=== PATIENT | female | born 1985 | race African-American/Black ===

== ENCOUNTER 2016-05-08 22:51 | Inpatient (IN) | payer OTHER ==
--- NOTE | ~2016-05-08 | HP ---
Unit #: [id number] #: [id number] Patient: ANA JOLLY [id number] [place] [address] [id number] MR#: [id number] NAME: ANA JOLLY ROOM: P211 Age: 31 Sex: F Admission Date: 05/08/2016 : 1985 Attending Physician: Manohar Avalos M.D. Admitting Physician: Manohar Avalos M.D. Primary Care Physician: Primary Care Physician No HISTORY AND PHYSICAL HISTORY OF PRESENT ILLNESS The patient is a 31 year old female who states that she is here due to alcohol abuse. Drinks approximately one fifth of bourbon or vodka per day. PAST MEDICAL HISTORY None. PAST SURGICAL HISTORY Significant for left ankle surgery. ALLERGIES None. SOCIAL HISTORY Positive for alcohol. FAMILY HISTORY Noncontributory. REVIEW OF SYSTEMS CONSTITUTIONAL: No fever or chills. HEENT: Denies any sore throat, ear pain or runny nose. CARDIOVASCULAR: Denies chest pain, irregular heart rhythm or palpitations. CHEST: Denies shortness of breath or cough. No hemoptysis. GASTROINTESTINAL: Denies nausea, vomiting, diarrhea or chronic constipation. ENDOCRINE: Denies history of increased thirst or urination. No recent significant weight loss or gain. GENITOURINARY: Denies dysuria, frequency, or hematuria. SKIN: Denies any rashes. HEMATOLOGIC: Denies history of increased bleeding or bruising. MUSCULOSKELETAL: Denies any hot, swollen joints. No generalized muscle pain. NEUROLOGIC: Denies problems with vision or speech. No frequent, severe headaches. No numbness, tingling or weakness in any extremities. Denies loss of bladder or bowel control. CURRENT MEDICATIONS 1. Paxil 20 mg daily. 2. Klonopin 1 mg p.o. t.i.d. PHYSICAL EXAMINATION GENERAL: Alert, oriented, in no acute distress. Unit #: [id number] #: [id number] Patient: ANA JOLLY VITAL SIGNS: Temperature 98, blood pressure 138/85, heart rate 118, respirations 20. HEIGHT: 5 feet 6 inches. WEIGHT: 250 pounds. SKIN: Warm and dry without rash or lesion. Scar to the left ankle and a scar to the bilateral thoracic area. HEENT: Normocephalic. TMs not viewed. Oral and nasal passages clear. Conjunctivae clear. PERRLA. EOMs intact. NECK: Supple without lymphadenopathy or thyromegaly. HEART: Regular rate and rhythm without murmur. LUNGS: Clear. ABDOMEN: Soft, nontender, without masses or hepatosplenomegaly. : Not done. EXTREMITIES: No evidence of cyanosis, clubbing or edema. Moves all without focal deficit. NEUROLOGICAL: Grossly within normal limits. Cranial Nerves: II: Visual putnam are intact. III, IV AND : Extraocular movements are intact. Pupils are equal, round and reactive to light. V: Facial sensation is grossly normal. VII: Facial movements and expression are normal. VIII: Auditory acuity grossly intact. IX, X: Uvula is midline. Phonation is normal. XI: Patient shrugs shoulders and turns head normally. XII: Tongue protrudes in the midline. Sensory and Motor Function: Sensory and motor sensation is grossly normal. Motor: moves all extremities well. Coordination: Gait is normal. Deep Tendon Reflexes: Intact. IMPRESSION Psychiatric admission. RECOMMENDATIONS PSYCHIATRIC: Per psychiatrist. MEDICAL: No contraindications to participate in facility's activities. MEDICAL PROGNOSIS Good. Dictated by... Susan Martinez/bahman TD: 05/09/2016 18:48 JOB #: [id number] Unit #: [id number] #: [id number] Patient: [facility] HISTORY AND PHYSICAL Page 1 of 1 X Mehnaz Joshi APR X HISTORY AND PHYSICAL
--- NOTE | ~2016-05-08 | PN ---
Unit #: [id number] #: [id number] Patient: ANA CORRALES [id number] [facility] [address] [place] [address] [id number] MR#: [id number] NAME: ANA CORRALES ROOM: P211 Age: 31 Sex: F Admission Date: 05/08/2016 : 1985 Attending Physician: Manohar Avalos M.D. Admitting Physician: Bora Chery PROGRESS NOTES DATE OF SERVICE: 05/10/2016 SUBJECTIVE Ms. Corrales is a 31-year-old female who was seen today and chart was reviewed, and case was discussed with the staff. She has been anxious, withdrawn, and rather seclusive to herself. Meanwhile, she has been cooperative with treatment recommendations and has been taking the medications and tolerating them fairly well with no reported side effects. MENTAL STATUS EXAMINATION Young female who was casually dressed with fair personal hygiene, appears to be in no acute distress or discomfort. She was awake and alert with intact orientation. Her mood was anxious with a congruent affect. She denies any suicidal or homicidal ideations. Her insight and judgment remain slightly impaired. TREATMENT PLAN 1. We will continue on her current treatment protocol. We will monitor her response to the medications and make further adjustments as needed. 2. We will continue to follow up. Dictated by... Bora Chery/argelia TD: 05/10/2016 13:47 JOB #: [id number] [facility] NOTES Page 1 of 1 X Manohar Avalos MD PROGRESS NOTE
--- NOTE | ~2016-05-08 | DS ---
Unit #: [id number] #: [id number] [facility] [id number] [facility] [address] [place] [address] [id number] I MR#: [id number] NAME: ANA JOLLY ROOM: P211 Age: 31 Sex: F Admission Date: 05/08/2016 : 1985 Discharge Date: Attending Physician: Manohar Avalos M.D. DISCHARGE SUMMARY IDENTIFYING DATA Ms. Jolly is a 31-year-old single female, who is a resident of [place], [place], and was self-referred to the hospital. DISCHARGE DIAGNOSES Psychiatric: Alcohol dependence, moderate and acute withdrawals; alcohol-induced mood disorder; cannabis abuse, moderate; cocaine abuse, moderate. Medical: None. Stressors: Moderate psychosocial stressors. HISTORY OF PRESENT ILLNESS Please see initial psychiatric evaluation for details. PAST PSYCHIATRIC HISTORY Please see initial psychiatric evaluation for details. PAST MEDICAL HISTORY Please see initial psychiatric evaluation for details. HOSPITAL COURSE The patient was admitted to the adult chemical dependency and psychiatric unit at [facility] and was oriented to the hospital environment. Routine p.r.n. medications were initiated, and she was started back on her home medications and was closely monitored. She was taking the medications regularly and was tolerating them fairly well and was able to show a decent and therapeutic response and was willing to continue treatment on an outpatient basis and as such, it was decided that she will be discharged home and will continue treatment on an outpatient basis. DISCHARGE MEDICATIONS Paxil 20 mg a day for depression, Seroquel 100 mg at bedtime for mood disorder, Vistaril 50 mg t.i.d. for anxiety. DISCHARGE CONDITION Stable. PROGNOSIS Fair. Dictated by... Manohar Avalos M.D. IAA/modl Unit #: [id number] #: [id number] Patient: ANA JOLLY TD: 05/12/2016 06:48 JOB #: [id number] DISCHARGE SUMMARY Page 1 of 1 X Manohar Avalos MD DISCHARGE SUMMARY
--- NOTE | ~2016-05-08 | PN ---
Unit #: [id number] #: [id number] Patient: ANA CORRALES [id number] [facility] [address] [place] [address] [id number] I MR#: [id number] NAME: ANA CORRALES ROOM: P211 Age: 31 Sex: F Admission Date: 05/08/2016 : 1985 Attending Physician: Manohar Avalos M.D. Admitting Physician: Manohar Avalos M.D. Primary Care Physician: Primary Care Physician Yris GRAMAJO PROGRESS NOTES DATE 05/11/2016 DISCUSSION Ms. Corrales is a 31-year-old female who was seen today and chart was reviewed and case was discussed with the staff. She has been anxious, withdrawn though appears to be doing better and reports doing good on her detox symptoms. She has been taking medications and tolerating them fairly well with no reported side effects. MENTAL STATUS EXAMINATION Young female who was casually dressed with fair personal hygiene, appears to be in no acute distress or discomfort. She was awake and alert on interaction with intact orientation. Her mood was anxious and depressed with congruent affect. She denies any suicidal or homicidal ideations. Her insight and judgement remains slightly impaired. TREATMENT PLAN 1. We will continue her on her current medications and treatment protocol. We will monitor her response to the medication and make further adjustments as needed. 2. We will continue to follow up. Dictated by... Bora Chery/jyoti TD: 05/13/2016 04:29 JOB #: [id number] Unit #: [id number] #: [id number] Patient: ANA CORRALES PROGRESS NOTES Page 1 of 1 X Manohar Avalos MD PROGRESS NOTE
--- NOTE | ~2016-05-08 | PA ---
Unit #: [id number] #: [id number] Patient: ANA CORRALES [id number] [facility] [address] [place] [address] [id number] I MR#: [id number] NAME: ANA CORRALES ROOM: P211 Age: 31 Sex: F Admission Date: 05/08/2016 : 1985 Date of Assessment: Attending Physician: Manohar Avalos M.D. Admitting Physician: Manohar Avalos M.D. Primary Care Physician: Primary Care Physician No PSYCHIATRIC ASSESSMENT DATE OF SERVICE 05/09/2016. IDENTIFYING DATA Ms. Corrales is a 31-year-old single female with a history of alcohol dependence, who is a resident of [place], [place] and was just recently discharged from my care after she was detoxed from alcohol; however, she ended up relapsing and now brought herself back to the hospital as a self-referral. CHIEF COMPLAINT "I was drinking and driving and I had a panic attack." HISTORY OF PRESENT ILLNESS Ms. Corrales is a 31-year-old female, who was brought to the hospital, accompanied by her uncle, Enrico Corrales, and upon presentation, had a blood alcohol level of 0.280 and a blood pressure of 143/93 and a heart rate of 133 and was in acute detox while intoxicated at the same time and reports that she is not suicidal, but that she had a lot of anxiety and has trouble sleeping and that she takes Paxil and Klonopin, but at the same time has been mixing the Klonopin with alcohol and has been having some accentuated response and has a history of addiction with alcohol being the primary drug of choice and has refused to follow up with outpatient treatment program after each hospitalization and has decompensated pretty soon after being discharged from the hospital and on this presentation, it has been noted that she was pushing to leave the last time she was under my care and was giving me different excuses and reasons stating that she feels that she is all better and cured and was ready to move on and soon afterwards, she ended up relapsing and now reports increasing depression, anxiety, irritability, restlessness, and inability to function on a daily basis. She denied any suicidal ideations, intent, or plan. SUBSTANCE ABUSE HISTORY The patient has had a history of alcohol, cannabis, cocaine, and amphetamine abuse, and currently, alcohol appears to be her drug of choice as she has been drinking a fifth on a daily basis and has an infrequent use of cannabis and cocaine. PAST PSYCHIATRIC HISTORY The patient has had a history of inpatient psychiatric hospitalizations at [facility]. She has done outpatient treatment program and has been to [facility] in the past as well, but has struggled to achieve any Unit #: [id number] #: [id number] Patient: ANA CORRALES JUDITH long-term sobriety, and review of the medical records indicate that currently she has been a patient of Dr. Bermudez, who has been her psychiatrist and has been giving her Klonopin on a t.i.d. basis despite the fact that the patient is an alcoholic and has been drinking regularly and heavily and has not been able to stay sober and I feel that she did not even had a chance to stay sober as even though she was clean from alcohol, she was getting Klonopin, was given the false perception that she has anxiety and therefore she has to be on Klonopin and yet she has never had a clean brain to see the underlying issues be properly addressed and not to mention that she has been mixing Paxil with alcohol and therefore has not been able to get any therapeutic response out of that particular medication as well. PAST MEDICAL HISTORY No acute or chronic medical illnesses. ALLERGIES No known medication allergies. PERSONAL AND SOCIAL HISTORY A 31-year-old female, who reports that she is single, unemployed, homeless, and has poor social support system. MENTAL STATUS EXAMINATION Young female, who was casually dressed with fair personal hygiene, appears to be in no acute distress or discomfort. She was awake and alert on interaction with intact orientation. Her mood was anxious and depressed with a congruent affect. Her speech was slow and restricted in content. Her thought processes were disorganized with some looseness of associations and paranoid ideations. Her insight and judgment remain significantly impaired. DIAGNOSTIC IMPRESSION Psychiatric: Alcohol dependence, moderate, in acute withdrawals; alcohol-induced mood disorder; cannabis abuse, moderate; and cocaine abuse, moderate. Medical: None. Stressors: Moderate psychosocial stressors. TREATMENT PLAN 1. The patient has presented with a history of substance abuse and mood disorder and has been decompensating and will need inpatient hospitalization for safety and stabilization. We will start her back on her home medications and detox protocol though will discontinue Klonopin. I will start her on the alcohol detox protocol. 2. Supportive therapy was provided to the patient. ESTIMATED LENGTH OF STAY 4 to 5 days. ABILITY TO HELP SELF Limited. WILLINGNESS TO HELP SELF The patient appears to be willing to help self. STRENGTHS 1. Communicative. 2. Cooperative. Unit #: [id number] #: [id number] Patient: ANA CORRALES JUDITH PROBLEMS 1. Chronic dysphoric symptoms. 2. Poor social support system. DISCHARGE CRITERIA This will be contingent upon the patient's ability to go through detox without having any significant withdrawal symptoms as well as her ability to stay safe to herself, particularly after discharge from the hospital. Dictated by... Bora Chery/argelia TD: 05/09/2016 13:42 JOB #: [id number] PSYCHIATRIC ASSESSMENT Page 1 of 1 X Manohar Avalos MD X PSYCHIATRIC ASSESSMENT
[2016-05-09 12:53] LABS: BASOPHIL% 0.5 % (0-2.5); EOSINOPHIL# 0.5 X10e3 (0-0.7); EOSINOPHIL% 8.4 % (0.0-7.0); HEMATOCRIT 41.4 % (35.0-45.0); HEMOGLOBIN 13.6 gm/dL (12.0-16.0); LYMPHOCYTE# 1.4 X10e3 (1.0-3.5); LYMPHOCYTE% 24.4 % (17.0-45.0); MEAN CORPUSCULAR HEMOGLOBIN 28.3 PG (28-34); MEAN CORPUSCULAR HGB CONC 32.9 g/dL (30-36); MEAN PLATELET VOLUME 7.9 FL (6.5-11.5); MONOCYTE# 0.6 X10e3 (0-1.0); MONOCYTE% 10.2 % (3.0-12.0); NEUTROPHIL# 3.4 X10e3 (1.5-7.1); NEUTROPHIL% 56.5 % (40-75); PLATELET COUNT 276 X10e3 (140-420); RED BLOOD COUNT 4.82 X10e (3.90-5.30); RED CELL DISTRIBUTION WIDTH 16.8 % (11.0-15.5); WHITE BLOOD COUNT 5.9 X10e3 (4.0-10.5)
[2016-05-09 12:55] LABS: DIFF IND NO
[2016-05-09 13:20] LABS: ALBUMIN SERUM 3.8 g/dL (3.5-5.0); BILIRUBIN,TOTAL 0.6 mg/dL (0.2-2.0); BUN/CREATININE RATIO 18.57; CALCIUM SERUM 8.8 mg/dL (8.4-10.2); CREATININE SERUM 0.7 mg/dL (0.6-1.4); GLOM FILT RATE Estimated 135.7 mL/min (>60); POTASSIUM 3.7 mmol/L (3.5-5.1)
[2016-05-09 13:25] LABS: THYROID STIMULATING HORMONE 4.78 uIU/ml (0.34-5.60)
[2016-05-09 13:31] LABS: FREE THYROXIN (T4) 0.67 ng/dL (0.58-1.64)
[2016-05-11 09:34] LABS: URINE APPEARANCE CLEAR; URINE BILIRUBIN NEG (NEG); URINE BLOOD NEG (NEG); URINE COLOR YELLOW; URINE GLUCOSE NEG (NEG); URINE KETONE NEG (NEG); URINE LEUKOCYTE ESTERASE TRACE (NEG); URINE NITRATE NEG (NEG); URINE PH 7.5 (5-8); URINE PROTEIN NEG (NEG); URINE UROBILINOGEN 0.2 MG/DL (NEG)
[2016-05-11 09:36] LABS: URBCS1 AUWI 0-2 /[HPF] (0-2); URINE BACTERIA AUWI NEG (NEGATIVE); URINE SQUAMOUS EPITHELIAL CELL NONE SEEN /[HPF]; UWBCS1 AUWI 0-2 (0-5)
[2016-05-11 09:55] LABS: AMPHETAMINE NEG (NEG); BARBITURATES NEG (NEG); BENZODIAZEPINES POS (NEG); COCAINE NEG (NEG); MARIJUANA NEG (NEG); OPIATES NEG (NEG); TRICYCLIC ANTIDEPRESSANTS NEG (NEG); U METHADONE NEG (NEG)
== END 2016-05-12 11:02 | DRG 897 ==
LOC: P2S 22:51
PROVIDERS: Psychiatry & Neurology Psychiatry
PROC: HZ2ZZZZ Detoxification Services for Substance Abuse Treatment (ICD-10-PCS; principal; 2016-05-08)
DX: F10.239 Alcohol dependence with withdrawal, unspecified (principal); F14.10 Cocaine abuse, uncomplicated; F10.24 Alcohol dependence with alcohol-induced mood disorder; F12.10 Cannabis abuse, uncomplicated
CPT/HCPCS: 80053; 80307; 81003; 84439; 84443; 84703; 85025; 86592